=== PATIENT | male | born 1945 | race Caucasian/White ===

== ENCOUNTER → 2017-07-01 | Outpatient (CLI) | payer MEDICARE, BC ==
[~2017-07-01] VITALS: Ht 167.6 cm; Wt 47.7 kg
[~2017-07-01] MED LIST: CENTRUM SILVER1 TA1 PO; FISH OIL CONC1000 MG PO; ST. JOSEPH81 M1 PO; UNICOMPLEX NEW1 CAP PO
[2017-07-01 14:12] VITALS: BP 109/46; PULSE 66; TEMP 97.9
== END ==
LOC: EUO 13:31
DX: M81.0 Age-related osteoporosis without current pathological fracture (principal); Z79.899 Other long term (current) drug therapy
CPT/HCPCS: J3489